=== PATIENT | female | born 1995 | race American Indian/Alaskan Native ===

== ENCOUNTER 2021-12-10 02:14 | Emergency (ER) | payer OTHER ==
[2021-12-10 03:33] VITALS: BP 141/91
[2021-12-10] MEDS ORDERED: diazePAM 5 MG TAB PO ONE (04:22)
[2021-12-10] MEDS ORDERED: IBUPROFEN 600 MG TAB PO ONE (04:22)
[2021-12-10] MEDS ORDERED: ACETAMINOPHEN 500 MG TAB PO ONE (04:22)
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
== END 2021-12-10 05:00 | disposition home or self-care (01) ==
LOC: ED 02:14
DX: S43.491A Other sprain of right shoulder joint, initial encounter (principal); M62.830 Muscle spasm of back; M62.838 Other muscle spasm; M54.2 Cervicalgia; Z98.890 Other specified postprocedural states; Z79.899 Other long term (current) drug therapy; V87.7XXA Person injured in collision between other specified motor vehicles (traffic), initial encounter; Y93.89 Activity, other specified; Y92.488 Other paved roadways as the place of occurrence of the external cause; Y99.8 Other external cause status
CPT/HCPCS: 99282

== ENCOUNTER 2021-12-18 21:09 | Emergency (ER) | payer SELFPAY ==
[2021-12-18 21:36] VITALS: BP 146/89
[2021-12-18] MEDS ORDERED: IBUPROFEN 800 MG TAB PO ONE (21:52)
--- NOTE | 2021-12-18 22:01 | Emergency Department Report ---
ED General Adult HPI - General Chief complaint: Sore Throat Stated complaint: SORE THROAT/BODY ACHE Source: patient Mode of arrival: Ambulatory Limitations: No Limitations - History of Present Illness Initial comments: 26-year-old female present with sore throat, cough and fever x2 days. She states that she has taking, flu without any. Patient is unvaccinated to COVID. Patient states coughing x 2days . Patient denies any Covid exposure. Patient denies any chest pain or shortness of breath nausea ,vomiting or fever. She is alert and oriented x3. No acute distress noted. No ill appearance noted. Severity scale (0 -10): 6 Worsens with: other (Swallowing) Associated Symptoms: denies other symptoms - Related Data Previous Rx's Medication Instructions Recorded Last Taken Type Baclofen 20 mg PO Q12H PRN #24 tab 12/10/21 Unknown Rx Ibuprofen [Motrin] 800 mg PO Q8HR PRN #30 tablet 12/10/21 Unknown Rx Acetaminophen/Codeine [Tylenol 1 tab PO Q6H PRN 3 Days #12 tab 12/18/21 Unknown Rx /Codeine # 3 tab] Ibuprofen [Motrin] 800 mg PO Q8HR PRN 15 Days #30 12/18/21 Unknown Rx tablet Penicillin V Potassium 500 mg PO BID 10 Days #20 tab 12/18/21 Unknown Rx Allergies Allergy/AdvReac Type Severity Reaction Status Date / Time No Known Allergies Allergy Verified 12/10/21 03:28 ED Review of Systems ROS: Stated complaint: SORE THROAT/BODY ACHE Other details as noted in HPI Constitutional: fever. denies: chills Eyes: denies: eye pain, eye discharge, vision change ENT: throat pain. denies: ear pain Respiratory: cough. denies: shortness of breath, wheezing Cardiovascular: denies: chest pain, palpitations Endocrine: no symptoms reported Gastrointestinal: denies: abdominal pain, nausea, diarrhea Genitourinary: denies: urgency, dysuria, discharge Musculoskeletal: denies: back pain, joint swelling, arthralgia Skin: denies: rash, lesions Neurological: denies: headache, weakness, paresthesias Psychiatric: denies: anxiety, depression Hematological/Lymphatic: denies: easy bleeding, easy bruising ED Past Medical Hx - Surgical History Additional Surgical History: Left Knee - Social History Smoking Status: Never Smoker - Medications Home Medications: Home Medications Medication Instructions Recorded Confirmed Last Taken Type Baclofen 20 mg PO Q12H PRN #24 tab 12/10/21 Unknown Rx Ibuprofen [Motrin] 800 mg PO Q8HR PRN #30 tablet 12/10/21 Unknown Rx Acetaminophen/Codeine [Tylenol 1 tab PO Q6H PRN 3 Days #12 tab 12/18/21 Unknown Rx /Codeine # 3 tab] Ibuprofen [Motrin] 800 mg PO Q8HR PRN 15 Days #30 12/18/21 Unknown Rx tablet Penicillin V Potassium 500 mg PO BID 10 Days #20 tab 12/18/21 Unknown Rx ED Physical Exam - General Limitations: No Limitations General appearance: alert, in no apparent distress - Head Head exam: Present: atraumatic, normocephalic - Eye Eye exam: Present: normal appearance - ENT ENT exam: Present: mucous membranes moist - Expanded ENT Exam Expanded Mouth exam: Absent: drooling, trismus, tongue normal Throat exam: Positive: tonsillomegaly, tonsillar exudate - Neck Neck exam: Present: normal inspection - Respiratory Respiratory exam: Present: normal lung sounds bilaterally. Absent: respiratory distress - Cardiovascular Cardiovascular Exam: Present: regular rate, normal rhythm. Absent: systolic murmur, diastolic murmur, rubs, gallop - GI/Abdominal GI/Abdominal exam: Present: soft, normal bowel sounds - Extremities Exam Extremities exam: Present: normal inspection - Back Exam Back exam: Present: normal inspection - Neurological Exam Neurological exam: Present: alert, oriented X3 - Psychiatric Psychiatric exam: Present: normal affect, normal mood - Skin Skin exam: Present: warm, dry, intact, normal color. Absent: rash ED Course Vital Signs 12/18/21 12/18/21 21:34 22:49 Temperature 100.2 F H 100.8 F H Pulse Rate 108 H 110 H Respiratory 18 98 H Rate Blood Pressure 146/89 O2 Sat by Pulse 98 97 Oximetry ED Medical Decision Making - Medical Decision Making 26-year-old female present with sore throat, cough and fever x2 days. She states that she has taking, flu without any. Patient is unvaccinated to COVID. Patient states coughing x 2days . Patient denies any Covid exposure. Patient denies any chest pain or shortness of breath nausea ,vomiting or fever. Alert and oriented x3. No acute distress noted no ill appearance noted. Physical examination patient has Tylenol enlarged tonsils with exudative noted. Uvula midline. rapid Strep A negative , will treat patient for tonsillitis with exudate. Given Motrin 800 mg p.o. for fever. explained to patient due to the pandemic cannot not rule out Covid and discuss outpatient testing . Rechecked the patient is resting quietly quietly and comfortable and feeling better. I discussed the results of diagnostic study, my clinical impression and the plan for further treatment with the patient. Patient agrees with plan and discharge at this present time. All question addressed. I have given the patient instruction regarding a diagnosis ,expectation ,follow- up and return precaution. I explained to the patient that emergent condition may arise and to return to the ED for new worsen and any new persisting condition. I have explained the importance of following up with the primary care physician or referral physician listed below has instructed. The patient verbalized understanding of discharge instruction. Critical care attestation.: If time is entered above; I have spent that time in minutes in the direct care of this critically ill patient, excluding procedure time. ED Disposition Clinical Impression: Acute infective tonsillitis Qualifiers: Pharyngitis/tonsillitis etiology: other specified organisms Qualified Code(s): J03.80 - Acute tonsillitis due to other specified organisms Disposition: 01 HOME / SELF CARE / HOMELESS Is pt being admited?: No Does the pt Need Aspirin: No Condition: Stable Instructions: Tonsillitis, [id number] Additional Instructions: Your symptoms appear most consistent with a nonspecific viral syndrome. However, given this current pandemic, COVID-19 is in the differential of possibilities. Despite your previous negative COVID-19 test, I do recommend repeat outpatient Covid 19 testing. In the meantime, isolate/quarantine yourself and stay away from anyone who is elderly, immunocompromised or chronically ill. You can use ibuprofen every 6-8 hours and Tylenol every 4-8 hours, using the dosing on the back of the bottle, as needed for any fever or body aches. Return to the emergency department with any worsening of your symptoms, development of chest pain or shortness of breath, or with any acute distress. Prescriptions: Ibuprofen [Motrin] 800 mg PO Q8HR PRN 15 Days #30 tablet PRN Reason: Pain , Severe (7-10) Penicillin V Potassium 500 mg PO BID 10 Days #20 tab Acetaminophen/Codeine [Tylenol /Codeine # 3 tab] 1 tab PO Q6H PRN 3 Days #12 tab PRN Reason: Pain , Severe (7-10) Referrals: PRIMARY CAREMD [Primary Care Provider] - 3-5 Days NURY KHAN MD [Staff Physician] - 3-5 Days Forms: Work/School Release Form(ED)
== END 2021-12-18 22:49 | disposition home or self-care (01) ==
LOC: ED 21:09
DX: J03.90 Acute tonsillitis, unspecified (principal)
CPT/HCPCS: 87116; 87430; 99283

== ENCOUNTER 2022-05-17 10:29 | Emergency (ER) | payer SELFPAY | END 2022-05-17 19:55 | disposition left against medical advice (07) | LOC: ED 10:29 | DX: Z04.1 Encounter for examination and observation following transport accident (principal); Z53.21 Procedure and treatment not carried out due to patient leaving prior to being seen by health care provider; V89.2XXA Person injured in unspecified motor-vehicle accident, traffic, initial encounter; Y93.89 Activity, other specified; Y92.89 Other specified places as the place of occurrence of the external cause; Y99.8 Other external cause status ==

== ENCOUNTER 2022-05-25 23:10 | Emergency (ER) | payer SELFPAY ==
[2022-05-26 00:05] VITALS: BP 151/83
--- NOTE | 2022-05-26 14:10 | Electrocardiograph Report ---
[facility] Test Date: 2022-05-25 Test Time: 23:18:13 Pat Name: KRYSTAL AVILES Department: Room: Gender: F [employer]: SANTHOSH : 1995 Requested By: ED DOC Order Number: [id number] Reading MD: Jovon Beard Measurements Intervals [place] Rate: 139 P: 79 [place]: 143 QRS: 57 QRSD: 77 T: -25 QT: 287 QTc: 437 Interpretive Statements Sinus tachycardia No previous ECG available for comparison Electronically Signed On 05-26-2022 14:09:56 EDT by Jovon Beard
== END 2022-05-26 04:15 | disposition left against medical advice (07) ==
LOC: ED 23:10
DX: F41.9 Anxiety disorder, unspecified (principal); Z53.21 Procedure and treatment not carried out due to patient leaving prior to being seen by health care provider
CPT/HCPCS: 93005